=== PATIENT | male | born 1935 | race Caucasian/White ===

== ENCOUNTER → 2022-07-01 10:48 | Outpatient (BNVA) | payer MEDICARE, OTHER, SELFPAY | PROVIDERS: PCP Internal Medicine; Referring Provider Internal Medicine; Visit Provider Internal Medicine Rheumatology | DX: M17.0 Bilateral primary osteoarthritis of knee (principal); M51.36 Other intervertebral disc degeneration, lumbar region; M05.9 Rheumatoid arthritis with rheumatoid factor, unspecified; I50.9 Heart failure, unspecified | CPT/HCPCS: 99202 ==

== ENCOUNTER → 2022-09-09 08:38 | Outpatient (BNVA) | payer MEDICARE, OTHER, SELFPAY | PROVIDERS: PCP Internal Medicine; Visit Provider Internal Medicine Rheumatology | DX: M47.816 Spondylosis without myelopathy or radiculopathy, lumbar region (principal); M05.9 Rheumatoid arthritis with rheumatoid factor, unspecified | CPT/HCPCS: 99212 ==

== ENCOUNTER 2023-04-05 11:16 | Outpatient (AMB) | payer MEDICARE, OTHER, SELFPAY ==
--- NOTE | 2023-04-05 11:45 | A.OFFVIS_ITS ---
Intake Vital Signs 04/05/23 11:46 Height 5 ft 7 in Weight 177 lb 0.499 oz BMI 27.7 BP 140/80 H Blood Pressure Location Lt brachial Position Sitting Pulse 85 Pulse Source Pulse Oximeter Temp 98.1 F Temp Source Skin Pulse Oximetry (%) 96 Oxygen Delivery Method Room Air Intake Visit Reasons: PMR Intake Note: Patient presents today for PMR follow up. Rv Technician Required: No Accompanied by: Daughter Allergies dapagliflozin [From [facility]] Allergy (Unknown, Verified 04/05/23 11:47) Unknown lactose Allergy (Unknown, Uncoded 04/05/23 11:47) Unknown mtx Allergy (Unknown, Uncoded 04/05/23 11:47) Pneumonia HPI HPI Comments History of Present Illness Details The patient returns with his daughter for evaluation of his rheumatoid arthritis. He was having minimal symptoms this spring and we tapered him off the prednisone in September. In December he called us with difficulty getting out of bed. It turns out mostly this was from low back pain. We did treat him with prednisone at 3 mg b.i.d.. That helped somewhat making him a little bit less inflexible in the mornings but he still has back pain. He did get seen at [facility]. They gave him a corticosteroid injection for trochanteric bursitis but he does not think that helped much. He is in physical therapy and that seems to be helping to some degree. He cut the prednisone down to 3 mg in the morning and 2 mg in the afternoon. Again with the reduction he only still gets the lower back pain. This does improve in the morning when he gets up and walks around but by the mid afternoon he is worse again. He does not improve until he goes to bed. The evening prednisone does not seem to help his a fternoons much. He does not have any pain in the shoulders, hands, knees or feet. The family had been concerned that his increased back pain might represent some return of his lymphoma. The daughter says he did undergo a CT scan of the abdomen and no lymphadenopathy or recurrence of lymphoma was noted. [facility] Medical History Aortic aneurysm CHF (congestive heart failure) DDD (degenerative disc disease), lumbar Diabetes Gout Ground glass opacity present on imaging of lung Hx of glaucoma Hyperlipidemia Hypertension Lumbar radiculopathy Lymphoma Mitral valve regurgitation PMR (polymyalgia rheumatica) Surgical History Hx of colonoscopy Hx of arthroscopy of knee History of back surgery Hx of spinal fusion Family History Father Myocardial infarct Mother Seizures Hypertension Social History Household Members: Spouse Alcohol intake: current Alcohol intake frequency: does not drink Patient Tobacco Use Status: Former Tobacco user Current occupational status: retired Review of Systems Const Details: Negative for appetite change, weight change, fever, chills, malaise and fatigue Eyes Details: Negative for vision change, dry eyes,headaches and dizziness ENT Details: Negative for hearing change, tinnitus, oral ulcer, nose bleeds and oral dryness. Card Details: Negative chest pain, edema and syncope Resp Details: Negative for SOB, cough and wheezing GI Details: Negative indigestion/heartburn, nausea, abdominal pain, bowel changes, diarrhea, constipation and bloody stool. Endo Details: Negative for polyuria and polydypsia Hen[place]/Lymph Details: Negative for excessive bruising or bleeding. Physical Exam Vital Signs: Last Vital Signs Temp 98.1 F 04/05/23 11:46 Pulse 85 04/05/23 11:46 BP 140/80 H 04/05/23 11:46 Pulse Ox 96 04/05/23 11:46 Oxygen Delivery Method Room Air 04/05/23 11:46 BMI result Body Mass Index 27.7 APPEARANCE: Patient in no acute distress No temporal artery tenderness, redness or swelling. JOINT EXAM: Cervical Spine:? Mild pain with lateral flexion 10 degrees or rotation at 35 degrees.? Some cervical muscle tenderness. Thoracic Spine:? No scoliosis.? No tenderness on palpation. Lumbar Spine:? Alignment normal.? Full range of motion with mild to moderate pain at 60 degrees flexion. There is some paraspinal muscle tenderness. Chest Wall:? No tenderness, swelling, increased warmth or erythema. Hands:? Right: No swelling or tenderness in the MCP joints.? There is bony enlargement at the PIP joints, thumb IP, and all the DIP joints.? These joints are not tender today.? There is no flexor tendon triggering.? He does have some decreased sensation over the thumb and 2nd finger attributed to a laceration and the proximal thumb region that damage nerves.? Left:? Mild swelling at the 1st MCP without tenderness.? All the PIP's and thumb IP joints have some slight bony enlargement without tenderness.? 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 There is no flexor tendon triggerin or thenar atrophy. Wrists:? Right:? Pain-free flexion extension 80 degrees without tenderness or swelling.? Left: Pain-free flexion or extension at 80 degrees with some slight tenderness but no swelling. Elbows:. Normal pain-free range of motion without tenderness, swelling, increased warmth or erythema. Shoulders:.?? Full range of motion without pain. No tenderness, weakness, swelling, increased warmth or erythema. Hips:.? Full range of motion without pain. Hip bursa:.? No tenderness. Knees:.?? Normal pain-free range of motion with mild patellofemoral crepitus but no effusion, tenderness, swelling, increased warmth or erythema.? Ankles:.? Normal pain-free range of motion without tenderness, swelling, increased warmth or erythema. Feet:? Normal pain-free range of motion with mild 1st MTP bony enlargement but no tenderness in that joint.? Elsewhere there is no tenderness, swelling, increased warmth or erythema.?? Results Reviewed Results Reviewed: Lab work from March 03 at [facility]: ESR 28, CRP 0.82 Assessment & Plan Assessment & Plan (1) Seropositive rheumatoid arthritis: Code(s): M05.9 - Rheumatoid arthritis with rheumatoid factor, unspecified (2) Osteoarthritis of lumbar spine: Code(s): M47.816 - Spondylosis without myelopathy or radiculopathy, lumbar region Plan It looks like there is minimal sign of active synovitis in the small joints from his rheumatoid arthritis on this low dose of prednisone. The biggest problem at this point remains the lower back pain. He is able to get up and around but has pain that develops in the afternoon and makes it difficult for him to stand up and walk. He is requesting a handicap placard and that seems reasonable since he always walks with a cane. I encouraged him to continue with physical therapy. I think for now we will keep him at the same dose of prednisone. When he sees orthopedics he should talked about obtaining a warm and form lumbar corset which might help some with his late in the afternoon back pain with standing. He could also consider return to a pain management service that might inject the back and as a last resort revisit the option of surgery in the future. We will see him back in about 3 months. Coding Level of Care Code Est Pt Level 3 (20098) Diagnoses Seropositive rheumatoid arthritis M05.9 Osteoarthritis of lumbar spine M47.816
[2023-04-05 11:46] VITALS: BP 140/80; PULSE 85; TEMP 36.7; O2SAT 96; BMI 27.7
== END 2023-04-05 12:33 | disposition home or self-care (01) ==
PROVIDERS: PCP Internal Medicine; Visit Provider Internal Medicine Rheumatology
DX: M05.79 Rheumatoid arthritis with rheumatoid factor of multiple sites without organ or systems involvement (principal); M47.816 Spondylosis without myelopathy or radiculopathy, lumbar region
CPT/HCPCS: 99213

== ENCOUNTER → 2023-04-05 11:16 | Outpatient (BNVA) | payer MEDICARE, OTHER, SELFPAY | PROVIDERS: PCP Internal Medicine; Visit Provider Internal Medicine Rheumatology | DX: M05.9 Rheumatoid arthritis with rheumatoid factor, unspecified (principal); M47.816 Spondylosis without myelopathy or radiculopathy, lumbar region | CPT/HCPCS: 99212 ==

== ENCOUNTER 2024-04-17 10:38 | Outpatient (AMB) | payer MEDICARE, OTHER, SELFPAY ==
--- NOTE | 2024-04-17 10:48 | A.OFFVIS_ITS ---
Vital Signs 04/17/24 10:51 Height 5 ft 7 in Weight 175 lb 14.862 oz BMI 27.6 BP 124/72 Blood Pressure Location Lt brachial Position Sitting Pulse 88 Pulse Oximetry (%) 98 Oxygen Delivery Method Room Air Intake Visit Reasons: PMR Intake Note: Patient presents for PMR. Allergies dapagliflozin [From [facility]] Allergy (Unknown, Verified 04/17/24 10:51) Unknown lactose Allergy (Unknown, Uncoded 04/05/23 11:47) Unknown mtx Allergy (Unknown, Uncoded 04/05/23 11:47) Pneumonia Medication List - Last Reconciled 04/17/24 by Elena Andrews MD acetaminophen ER (Tylenol 8 Hour) 650 mg PO Q8H albuterol sulfate 90 mcg/actuation 2 puffs inhalation Q4-6H PRN aspirin (Adult Low Dose Aspirin) 81 mg PO DAILY carvedilol 3.125 mg PO BID fluticasone furoate-vilanterol 100-25 mcg/dose (Breo Ellipta) 1 ea inhalation DAILY furosemide (Lasix) 10 mg PO DAILY insulin aspart U-100 (Novolog FlexPen U-100 Insulin aspart) 0 - 30 units subcut DAILY insulin glargine 10 units subcut QPM multivitamin 1 tab PO DAILY prednisone take 3 tabs by mouth in the morning and 2 tabs at night sacubitril-valsartan 49-51 mg (Entresto) 1 tab PO BID sennosides-docusate sodium 8.6-50 mg (Stimulant Laxative Plus) 1 tab-cap PO BEDTIME HPI Comments Details: This is an 88-year-old male with rheumatoid arthritis who presents for follow- up. Patient was prescribed prednisone 3 mg in the morning and 2 mg at night by Dr. Gaona. He states that he has lowered the dose to 2 mg in the morning and 1 mg at night and he is doing reasonably well. He has morning stiffness of his hands lasting 5-10 minutes. Per his son patient discontinued prednisone sometime in the summer and he was having significant arthritic pains. His main problem is his back pain. He has done physical therapy without improvement. And he will be seeing a methods specialist engineer tomorrow. [facility] Medical History Hx of glaucoma Hyperlipidemia Diabetes Lymphoma Gout Lumbar radiculopathy Mitral valve regurgitation DDD (degenerative disc disease), lumbar Ground glass opacity present on imaging of lung PMR (polymyalgia rheumatica) Hypertension CHF (congestive heart failure) Aortic aneurysm Surgical History Hx of colonoscopy Hx of arthroscopy of knee History of back surgery Hx of spinal fusion Family History Father Myocardial infarct Mother Seizures Hypertension Social History Household Members: Spouse Alcohol intake: current Alcohol intake frequency: does not drink Patient Tobacco Use Status: Former Tobacco user Current occupational status: retired Review of Systems Musc Reports abnormal gait, Reports back pain, Reports arthralgias and Reports stiffness Neuro Reports abnormal gait Physical Exam Vital Signs: Last Vital Signs Pulse 88 04/17/24 10:51 BP 124/72 04/17/24 10:51 Pulse Ox 98 04/17/24 10:51 Oxygen Delivery Method Room Air 04/17/24 10:51 BMI result Body Mass Index 27.6 Const General: cooperative, healthy appearing and comfortable Nutritional Appearance: overweight Orientation/consciousness: patient oriented x3 Limitations: ambulation with cane HEENT Head: Yes normocephalic and Yes atraumatic Mouth: moist mucous membranes Resp Effort & Inspection: normal respiratory effort and able to speak in complete sentences Auscultation: clear to auscultation bilaterally Cardio Rate: regular rate Rhythm: regular rhythm Skin General skin exam: no rashes or lesions noted Neuro General: patient oriented x3 Extrem Other: Mild osteoarthritic changes of both hands There is very subtle synovitis, almost all his fingers are slightly puffy Bilateral wrist pain with full flexion Bilateral elbow pain with full flexion Decent bilateral hand medical affairs leader strength, mildly reduced right hand No knee warmth or swelling bilaterally Bilateral knee crepitus No ankle swelling or tenderness bilaterally Kyphotic, walks with a cane, Assessment & Plan Assessment & Plan (1) Seropositive rheumatoid arthritis: Code(s): M05.9 - Rheumatoid arthritis with rheumatoid factor, unspecified Category: Medical Plan: This is a 88-year-old male who presents for evaluation of rheumatoid arthritis. He is on prednisone 2 mg in the morning and 1 mg at night. On exam he has very subtle synovitis. In the past patient took methotrexate and apparently had side effects at that time, had pneumonitis versus pneumonia. Other DMARDs we discussed such as hydroxychloroquine, TNF inhibitors and leflunomide. Patient had concerns with hydroxychloroquine, worried about CHF. Already has history of CHF. He was also concerned with TNF inhibitors due to his history of lymphoma. Advised patient that we will further taper his prednisone slowly Reduced to 1.5 mg in the morning and 1 mg at night for 1 month then reduce to 1 mg Twice daily Based on his labs and clinical response we will discuss other DMARD options Labs today and before next visit in 3 months (2) Osteoarthritis of lumbar spine: Code(s): M47.816 - Spondylosis without myelopathy or radiculopathy, lumbar region Category: Medical Plan: Has been doing PT this year without improvement. 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 We will try to get patient to the lowest effective dose of prednisone. Advised patient to follow-up regularly with quill skinner Plan I spent 45 minutes reviewing patient's chart, evaluating patient, ordering diagnostic workup, counseling patient and documenting in the chart Orders: Orders Comprehensive Met. Panel Today M05.9 - Rheumatoid arthritis with rheumatoid factor, unspecified C Reactive Protein Today M05.9 - Rheumatoid arthritis with rheumatoid factor, unspecified Complete Blood Count Auto Diff Today M05.9 - Rheumatoid arthritis with rheumatoid factor, unspecified Erythrocyte Sedimentation Rate Today M05.9 - Rheumatoid arthritis with rheumatoid factor, unspecified Uric Acid Today M10.9 - Gout, unspecified Medications: Changed From prednisone take 3 tabs by mouth in the morning and 2 tabs at night 150 tabs 0RF M05.9 - Rheumatoid arthritis with rheumatoid factor, unspecified To prednisone 1 mg PO BID 180 tabs 0RF M05.9 - Rheumatoid arthritis with rheumatoid factor, unspecified Coding Level of Care Code Est Pt Level 5 (95047) Complex EM visit Add On G2211 Diagnoses Seropositive rheumatoid arthritis M05.9 Osteoarthritis of lumbar spine M47.816 Gout 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
[2024-04-17 10:51] VITALS: BP 124/72; PULSE 88; O2SAT 98; BMI 27.6
== END 2024-04-17 11:26 | disposition home or self-care (01) ==
PROVIDERS: PCP Internal Medicine; Visit Provider Student in an Organized Health Care Education/Training Program
DX: M05.79 Rheumatoid arthritis with rheumatoid factor of multiple sites without organ or systems involvement (principal); M47.816 Spondylosis without myelopathy or radiculopathy, lumbar region; M10.9 Gout, unspecified; Z79.52 Long term (current) use of systemic steroids
CPT/HCPCS: 99215; G2211

== ENCOUNTER → 2024-04-17 10:38 | Outpatient (BNVA) | payer MEDICARE, OTHER, SELFPAY | PROVIDERS: PCP Internal Medicine; Visit Provider Student in an Organized Health Care Education/Training Program | DX: M05.9 Rheumatoid arthritis with rheumatoid factor, unspecified (principal); M10.9 Gout, unspecified; M47.816 Spondylosis without myelopathy or radiculopathy, lumbar region; Z79.52 Long term (current) use of systemic steroids | CPT/HCPCS: 99212 ==

== ENCOUNTER 2024-04-17 11:32 | Outpatient (REF) | payer MEDICARE, OTHER, SELFPAY ==
[2024-04-17 13:20] LABS: MANUAL DIFF FLAG NO
[2024-04-17 13:28] LABS: Basophils Absolute Auto 0.1 X10*3/uL (0.0-0.2); Basophils Percent Auto 0.9 % (0-2); Eosinophils Absolute Auto 0.2 X10*3/uL (0.0-0.4); Eosinophils Percent Auto 1.9 % (0-4); Hematocrit 44.5 % (42.0-52.0); Hemoglobin 15.5 g/dl (14.0-18.0); Imm Gran Abs Auto 0.01 X10*3/uL (0.00-0.03); Imm Gran Pct Auto 0.1 % (0.0-0.4); Lymphocytes Absolute Auto 1.5 X10*3/uL (1.2-4.9); Mean Corpuscular HGB Conc 34.8 g/dl (31.0-36.0); Mean Corpuscular Hemoglobin 33.9 pg (27.0-33.0); Mean Corpuscular Volume 97.4 fL (80.0-98.0); Mean Platelet Volume 9.2 fL (9.4-12.4); Monocytes Absolute Auto 1.1 X10*3/uL (0.1-1.2); Neutrophils Absolute Auto 5.9 x10*3/uL (2.0-8.3); Neutrophils Percent Auto 68.1 % (45-73); Platelet Count 193 X10*3/uL (160-400); Red Blood Count 4.57 X10*6/uL (4.60-5.80); Red Cell Distribution Width 13.2 % (11.0-16.0); White Blood Count 8.7 X10*3/uL (4.8-10.8)
[2024-04-17 13:36] LABS: Rheumatoid Factor 34.4 IU/mL (<15.0)
[2024-04-17 14:02] LABS: Alanine Aminotransferase 23 U/L (0-40); Albumin Level 3.9 g/dL (3.5-5.0); Alkaline Phosphatase 53 U/L (39-117); Anion Gap 12 (12-20); Aspartate Amino Transferase 21 U/L (5-37); Bilirubin Total 0.6 mg/dL (0.0-1.0); Blood Urea Nitrogen 23 mg/dL (9-16); Calcium 9.7 mg/dL (8.4-10.2); Carbon Dioxide 25 mmol/L (22-29); Chloride 105 mmol/L (96-108); Estimated Glomerular Filt Rate > 60; Glucose Random 195 mg/dL (60-115); Potassium 4.3 mmol/L (3.3-5.1); Sodium 138 mmol/L (135-145); Total Protein 7.3 g/dL (6.5-8.0); Uric Acid 6.7 mg/dL (3.4-7.0)
[2024-04-17 14:10] LABS: Erythrocyte Sedimentation Rate 14 MM/HR (0-15)
[2024-04-18 06:00] LABS: HBS Num1 0.49 mIU/mL (0-7.99); HBc Num1 0.08 S/CO (0.00-0.79); HBsAGNum1 0.33 S/CO (0.00-0.99); Hepatitis A Antibody IgM 0.22 Index (0-0.79); Hepatitis B Core Antibody Nonreactive (Nonreactive); Hepatitis B Surface Antigen Negative (Negative); ~HepC Num1 0.15 S/CO (0.00-0.79); ~Hepatitis A Antibody IgM Nonreactive (Nonreactive); ~Hepatitis B Surface Antibody NONREACTIVE (Nonreactive); ~Hepatitis C Antibody Nonreactive (Nonreactive)
[2024-04-19 13:43] LABS: Anti Nuclear Antibody Screen NEGATIVE (NEGATIVE)
[2024-04-20 06:28] LABS: Cyclic Citrullinated Peptide <16 UNITS
== END 2024-04-17 11:33 | disposition home or self-care (01) ==
LOC: HO.10HDL 11:32
PROVIDERS: Visit Provider Student in an Organized Health Care Education/Training Program
DX: Z11.59 Encounter for screening for other viral diseases (principal); M10.9 Gout, unspecified; M05.9 Rheumatoid arthritis with rheumatoid factor, unspecified; Z72.89 Other problems related to lifestyle
CPT/HCPCS: 36415; 80053; 84550; 85025; 85652; 86038; 86140; 86200; 86431; 86704; 86706; 86709; 86803; 87340

== ENCOUNTER 2024-07-24 13:26 | Outpatient (AMB) | payer MEDICARE, OTHER, SELFPAY ==
--- NOTE | 2024-07-24 13:34 | A.OFFVIS_ITS ---
Vital Signs 07/24/24 13:44 Height 5 ft 7 in Weight 171 lb 15.369 oz BMI 26.9 BP 115/74 Blood Pressure Location Lt brachial Position Sitting Pulse 76 Pulse Source Pulse Oximeter Pulse Oximetry (%) 99 Oxygen Delivery Method Room Air Intake Visit Reasons: RA Intake Note: Patient presents for RA. Allergies dapagliflozin [From [facility]] Allergy (Unknown, Verified 07/24/24 13:38) Unknown lactose Allergy (Unknown, Uncoded 04/05/23 11:47) Unknown mtx Allergy (Unknown, Uncoded 04/05/23 11:47) Pneumonia Medication List - Last Reconciled 07/24/24 by Elena Andrews MD acetaminophen ER (Tylenol 8 Hour) 650 mg PO Q8H albuterol sulfate 90 mcg/actuation 2 puffs inhalation Q4-6H PRN aspirin (Adult Low Dose Aspirin) 81 mg PO DAILY carvedilol 3.125 mg PO BID fluticasone furoate-vilanterol 100-25 mcg/dose (Breo Ellipta) 1 ea inhalation DAILY furosemide (Lasix) 10 mg PO DAILY insulin aspart U-100 (Novolog FlexPen U-100 Insulin aspart) 0 - 30 units subcut DAILY insulin glargine 10 units subcut QPM multivitamin 1 tab PO DAILY sacubitril-valsartan 49-51 mg (Entresto) 1 tab PO BID topiramate 75 mg PO BEDTIME HPI Comments Details: This is an 89-year-old male with rheumatoid arthritis and significant spinal osteoarthritis who presents for follow-up. Last visit, I had asked patient to slowly taper his prednisone and stay on 2 mg a day, patient apparently tapered it off about a month ago, as soon as he went off his prednisone his back pain became much worse and he could hardly straighten in his back, he was evaluated by a specialist and received an injection in his back yesterday and he feels much better overall, now he is able to straighten his back and walk better, he states however that the pain that radiates down his left lower extremity did not improve much. He has not noticed much change in his hands, wrists, knees or ankles PFSH Medical History Hx of glaucoma Hyperlipidemia Diabetes Lymphoma Gout Lumbar radiculopathy Mitral valve regurgitation DDD (degenerative disc disease), lumbar Ground glass opacity present on imaging of lung PMR (polymyalgia rheumatica) Hypertension CHF (congestive heart failure) Aortic aneurysm Surgical History Hx of colonoscopy Hx of arthroscopy of knee History of back surgery Hx of spinal fusion Family History Father Myocardial infarct Mother Seizures Hypertension Social History Household Members: Spouse Alcohol intake: current Alcohol intake frequency: does not drink Patient Tobacco Use Status: Former Tobacco user Current occupational status: retired Review of Systems Musc Reports abnormal gait, Reports back pain, Reports arthralgias, Denies joint swelling and Reports stiffness Neuro Reports abnormal gait Physical Exam Vital Signs: Last Vital Signs Pulse 76 07/24/24 13:44 BP 115/74 07/24/24 13:44 Pulse Ox 99 07/24/24 13:44 Oxygen Delivery Method Room Air 07/24/24 13:44 BMI result Body Mass Index 26.9 Const General: cooperative, healthy appearing and comfortable Nutritional Appearance: overweight Orientation/consciousness: patient oriented x3 Limitations: ambulation with cane HEENT Head: Yes normocephalic and Yes atraumatic Mouth: moist mucous membranes Resp Effort & Inspection: normal respiratory effort and able to speak in complete sentences Skin General skin exam: no rashes or lesions noted Neuro General: patient oriented x3 Extrem Other: Mild osteoarthritic changes of both hands No swelling of fingers today No wrist pain with full flexion-extension bilaterally No elbow pain with full flexion-extension bilaterally Normal bilateral hand clinical research scientist strength Able to stand up without assistance No knee warmth or swelling bilaterally Bilateral knee crepitus No ankle swelling or tenderness bilaterally Kyphotic, walks with a cane, Assessment & Plan Assessment & Plan (1) Seropositive rheumatoid arthritis: Code(s): M05.9 - Rheumatoid arthritis with rheumatoid factor, unspecified Category: Medical Plan: This is a 89-year-old male who presents for evaluation of rheumatoid arthritis. I had asked patient to slowly taper his prednisone to 1 mg Twice daily but he tapered it off about a month ago. Soon after he started having worsening low back pain and he received a steroid injection in his spine yesterday with significant improvement of his back pain. Understandably on exam today there is no active synovitis due to the recent steroid injection. In the past patient took methotrexate and apparently had side effects at that time, had pneumonitis versus pneumonia. Other DMARDs we discussed such as hydroxychloroquine, TNF inhibitors and leflunomide. Patient had concerns with hydroxychloroquine, worried about CHF. Already has history of CHF. He was also concerned with TNF inhibitors due to his history of lymphoma. Patient is worried about a flare-up of his back pain now that he is off steroids, he has an appointment with sports medicine tomorrow, advised patient to discuss it with them, he may require steroid injections periodically. I think at this time we can monitor patient off DMARDs, discussed with patient that if his hands start to swell up again he can restart prednisone at 2 mg a day. We can discuss other DMARD options if required, we will have to see how his RA responnds to spinal steroid injections Labs before next visit in 3 months (2) Osteoarthritis of lumbar spine: Code(s): M47.816 - Spondylosis without myelopathy or radiculopathy, lumbar region Category: Medical Plan: Follow-up with sports medicine (3) jail systemic steroid user: Code(s): Z79.52 - jail (current) use of systemic steroids Category: Medical Plan: Patient is aware of long-term systemic steroid use side effects such as cataracts, glaucoma, bone fragility, hyper glycemia and others. Advised patient to follow-up regularly with die try out worker stamping Plan I spent 45 minutes reviewing patient's chart, evaluating patient, ordering diagnostic workup, counseling patient and documenting in the chart Coding Level of Care Code Est Pt Level 4 (46975) Diagnoses Seropositive rheumatoid arthritis M05.9 Osteoarthritis of lumbar spine M47.816 jail systemic steroid user Z79.52
[2024-07-24 13:44] VITALS: BP 115/74; PULSE 76; O2SAT 99; BMI 26.9
--- OUTSIDE RECORDS SUMMARY | 2024-07-24 15:41 | XMS_ITS | Clinical Summary ---
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 Active 2021-07 00:00: 00 UNSPECIFIED B-CELL LYMPHOMA, UNSPECIFIED SITE Active 2021-07 00:00: 00 HEART FAILURE, UNSPECIFIED Active 2021-07 00:00: 00 NONRHEUMATIC MITRAL (VALVE) INSUFFICIENC Y Active 2021-07 00:00: 00 FLU DUE TO OTH IDENT INFLUENZA VIRUS W OTH RESP MANIFEST Active 2021-07 00:00: 00 PULMONARY FIBROSIS, UNSPECIFIED Active 2021-07 00:00: 00 ANEMIA, UNSPECIFIED Active 2021-07 00:00: 00 RHEUMATOID ARTHRITIS, UNSPECIFIED Active 2021-07 00:00: 00 UNSPECIFIED OSTEOARTHRIT IS, UNSPECIFIED SITE Active 2021-07 00:00: 00 GOUT, UNSPECIFIED Active 2021-07 00:00: 00 CONSTIPATION , UNSPECIFIED Active 2021-07 00:00: 00 KNIFE GRINDER (CURRENT) USE OF INHALED STEROIDS Active 2021-07 00:00: 00 KNIFE GRINDER (CURRENT) USE OF ASPIRIN Active 2021-07 00:00: 00 PRISON (CURRENT) USE OF SYSTEMIC STEROIDS Active 2021-07 00:00: 00 KNIFE GRINDER (CURRENT) USE OF INSULIN Active 2021-07 00:00: 00 PERSONAL HISTORY OF PNEUMONIA (RECURRENT) Active 2021-07 00:00: 00 PERSONAL HISTORY OF NICOTINE DEPENDENCE Active 2021-07 00:00: 00 Allergies, Adverse Reactions, Alerts Allergy Name Allergy Type Status Severity Reaction(s) Onset Date Inactive Date Treating Clinician Comments NKA Propensity to adverse reactions Active 2022-05 13:00:3 3 Medications Ordered Medication Name Filled Medication Name Start Date Stop Date Current Medication? Ordering Clinician Indication Dosage Frequency Signature (SIG) Comments Components prednisone 20 mg tablet 2021-07 00:00: 00 06-14 23:59 :00 No [id number] Per instruc tions DAILY Per instructio ns DAILY (route: oral) Med Classific ation: Endocrine prednisone 20 mg tablet 2021-07 00:00: 00 06-14 23:59 :00 No [id number] Per instruc tions DAILY Per instructio ns DAILY (route: oral) Med Classific ation: Endocrine Entresto 49 mg-51 mg tablet 2021-07 00:00: 00 Yes [id number] Per instruc tions TWICE DAILY Per instructio ns TWICE DAILY (route: oral) Med Classific ation: Cardiovas cular Therapy Agents prednisone 5 mg tablet 2021-07 00:00: 00 Yes [id number] Per instruc tions DAILY Per instructio ns DAILY (route: oral) Med Classific ation: Endocrine albuterol sulfate HFA 90 mcg/actuati on aerosol inhaler 2021-07 00:00: 00 Yes [id number] Per instruc tions EVERY 4 TO 6 HOURS NEEDED Per instructio ns EVERY 4 TO 6 HOURS NEEDED (route: inhalation ) Med Classific ation: Respirato ry Therapy Agents aspirin 81 mg tablet,sharita yed release 2021-07 00:00: 00 Yes [id number] 1 tablet DAILY 1 tablet DAILY (route: oral) Med Classific ation: Hematolog ical Agents Basaglar KwikPen U-100 Insulin 100 unit/mL (3 mL) subcutaneou s 2021-07 00:00: 00 Yes [id number] 17 unit DAILY 17 unit DAILY (route: subcutaneo us) Med Classific ation: Endocrine Breo Ellipta 200 mcg-25 mcg/dose powder for inhalation 2021-07 00:00: 00 Yes [id number] 1 inhalat ion DAILY 1 inhalation DAILY (route: inhalation ) Med Classific ation: Respirato ry Therapy Agents carvedilol 3.125 mg tablet 2021-07 00:00: 00 Yes [id number] 1 tablet 2 TIMES DAILY 1 tablet 2 TIMES DAILY (route: oral) Med Classific ation: Cardiovas cular Therapy Agents diclofenac 1 % topical gel 2021-07 00:00: 00 Yes [id number] Per instruc tions 4 TIMES DAILY Per instructio ns 4 TIMES DAILY (route: topical) Med Classific ation: Dermatolo gical furosemide 20 mg tablet 2021-07 00:00: 00 Yes [id number] 0.5 tablet DAILY 0.5 tablet DAILY (route: oral) Med Classific ation: Cardiovas cular Therapy Agents Multivitami n 50 Plus tablet 2021-07 00:00: 00 Yes [id number] 1 tablet DAILY 1 tablet DAILY (route: oral) Med Classific ation: Electroly te Balance-N utritiona l Products Novolog Flexpen U-100 Insulin aspart 100 unit/mL (3 mL) subcutane s 2021-07 00:00: 00 Yes [id number] Per instruc tions 3 TIMES DAILY Per instructio ns 3 TIMES DAILY (route: subcutaneo us) Med Classific ation: Endocrine Senna with Docusate Sodium 8.6 mg-50 mg tablet 2021-07 00:00: 00 Yes [id number] 1 tablet BEDTIME 1 tablet BEDTIME (route: oral) Med Classific ation: Gastroint estinal Therapy Agents Vital Signs Vital Name Observation Time Observation Value Commen ts Temperature 2022-08-03 13:44:00.000 97.3 [degF] Temperature 2022-07-25 15:50:00.000 97.4 [degF] Temperature 2022-07-18 09:16:00.000 97.1 [degF] Temperature 2022-07-11 12:07:00.000 97.5 [degF] Temperature 2022-07-08 10:40:00.000 97.9 [degF] Temperature 2022-06-28 14:28:00.000 97 [degF] Temperature 2022-06-28 10:00:00.000 97.8 [degF] Temperature 2022-06-23 11:00:00.000 97 [degF] Temperature 2022-06-23 09:52:00.000 97.4 [degF] Temperature 2022-06-18 09:10:00.000 97.3 [degF] Temperature 2022-06-16 13:45:00.000 97.4 [degF] Temperature 2022-06-13 09:09:00.000 97 [degF] Temperature 2022-06-08 12:57:00.000 96.9 [degF] BMI (%) 2022-06-08 12:36:14.000 26 kg/m2 Height 2022-06-08 12:35:15.000 67 [in_us] Pulse 2022-08-03 13:44:00.000 66 /min Pulse 2022-07-25 15:50:00.000 68 /min Pulse 2022-07-18 09:16:00.000 86 /min Pulse 2022-07-11 12:07:00.000 66 /min Pulse 2022-07-08 10:40:00.000 79 /min Pulse 2022-06-28 14:28:00.000 81 /min Pulse 2022-06-28 10:00:00.000 76 /min Pulse 2022-06-23 11:00:00.000 78 /min Pulse 2022-06-23 09:52:00.000 76 /min Pulse 2022-06-18 09:10:00.000 87 /min Pulse 2022-06-16 13:45:00.000 80 /min Pulse 2022-06-13 09:09:00.000 84 /min Pulse 2022-06-08 12:57:00.000 67 /min O2 Saturation (%) 2022-08-03 13:44:00.000 96 % O2 Saturation (%) 2022-07-25 15:50:00.000 98 % O2 Saturation (%) 2022-07-18 09:16:00.000 96 % O2 Saturation (%) 2022-07-11 12:07:00.000 97 % O2 Saturation (%) 2022-07-08 10:40:00.000 97 % O2 Saturation (%) 2022-06-28 14:28:00.000 96 % O2 Saturation (%) 2022-06-23 09:52:00.000 96 % O2 Saturation (%) 2022-06-18 09:10:00.000 97 % O2 Saturation (%) 2022-06-16 13:45:00.000 95 % O2 Saturation (%) 2022-06-13 09:09:00.000 95 % O2 Saturation (%) 2022-06-08 12:57:00.000 95 % Respirations 2022-08-03 13:44:00.000 18 /min Respirations 2022-07-25 15:50:00.000 18 /min Respirations 2022-07-18 09:16:00.000 18 /min Respirations 2022-07-11 12:07:00.000 18 /min Respirations 2022-07-08 10:40:00.000 17 /min Respirations 2022-06-28 14:28:00.000 18 /min Respirations 2022-06-28 10:00:00.000 19 /min Respirations 2022-06-23 11:00:00.000 19 /min Respirations 2022-06-23 09:52:00.000 18 /min Respirations 2022-06-18 09:10:00.000 18 /min Respirations 2022-06-16 13:45:00.000 20 /min Respirations 2022-06-13 09:09:00.000 18 /min Respirations 2022-06-08 12:57:00.000 20 /min Weight (lbs) 2022-08-03 13:45:00.000 170 [lb_av] Weight (lbs) 2022-07-25 15:50:00.000 170 [lb_av] Weight (lbs) 2022-07-18 09:18:00.000 170 [lb_av] Weight (lbs) 2022-07-11 12:20:00.000 170 [lb_av] Weight (lbs) 2022-07-08 10:40:00.000 170 [lb_av] Weight (lbs) 2022-06-28 14:28:00.000 170 [lb_av] Weight (lbs) 2022-06-28 10:00:00.000 173 [lb_av] Weight (lbs) 2022-06-23 11:00:00.000 171 [lb_av] Weight (lbs) 2022-06-23 09:54:00.000 171 [lb_av] Weight (lbs) 2022-06-18 09:16:00.000 171 [lb_av] Weight (lbs) 2022-06-16 13:45:00.000 172 [lb_av] Weight (lbs) 2022-06-13 09:09:00.000 171 [lb_av] Weight (lbs) 2022-06-08 12:36:14.000 172 [lb_av] Systolic Blood Pressure 2022-08-03 13:44:00.000 102 mm [Hg] Systolic Blood Pressure 2022-07-25 15:50:00.000 148 mm [Hg] Systolic Blood Pressure 2022-07-18 09:16:00.000 119 mm [Hg] Systolic Blood Pressure 2022-07-11 12:07:00.000 132 mm [Hg] Systolic Blood Pressure 2022-07-08 10:40:00.000 112 mm [Hg] Systolic Blood Pressure 2022-06-28 14:28:00.000 101 mm [Hg] Systolic Blood Pressure 2022-06-28 10:00:00.000 124 mm [Hg] Systolic Blood Pressure 2022-06-23 11:00:00.000 124 mm [Hg] Systolic Blood Pressure 2022-06-23 09:52:00.000 113 mm [Hg] Systolic Blood Pressure 2022-06-18 09:10:00.000 129 mm [Hg] Systolic Blood Pressure 2022-06-16 13:45:00.000 126 mm [Hg] Systolic Blood Pressure 2022-06-13 09:09:00.000 125 mm [Hg] Systolic Blood Pressure 2022-06-08 12:57:00.000 143 mm [Hg] Diastolic Blood Pressure 2022-08-03 13:44:00.000 52 mm [Hg] Diastolic Blood Pressure 2022-07-25 15:50:00.000 80 mm [Hg] Diastolic Blood Pressure 2022-07-18 09:16:00.000 78 mm [Hg] Diastolic Blood Pressure 2022-07-11 12:07:00.000 80 mm [Hg] Diastolic Blood Pressure 2022-07-08 10:40:00.000 62 mm [Hg] Diastolic Blood Pressure 2022-06-28 14:28:00.000 64 mm [Hg] Diastolic Blood Pressure 2022-06-28 10:00:00.000 76 mm [Hg] Diastolic Blood Pressure 2022-06-23 11:00:00.000 80 mm [Hg] Diastolic Blood Pressure 2022-06-23 09:52:00.000 80 mm [Hg] Diastolic Blood Pressure 2022-06-18 09:10:00.000 78 mm [Hg] Diastolic Blood Pressure 2022-06-16 13:45:00.000 78 mm [Hg] Diastolic Blood Pressure 2022-06-13 09:09:00.000 76 mm [Hg] Diastolic Blood Pressure 2022-06-08 12:57:00.000 83 mm [Hg] Plan of Treatment Planned Activity Planned Date Details Comments Future Scheduled Test SKILLED NU RSE TO EVALUATE PATIENT, IDENTIFY PRIMARY AND CO-MORBID CONDITIONS CODED PER CODING GUIDELINES, AND DEVELOP PATIENT SPECIFIC PLAN OF CARE THAT INCLUDES PATIENT GOAL FOR HOME HEALTH. CLINICAL SUMMARY SOC THE PATIENT IS RECEIVING HOMECARE DUE TO DIABETES, INFLUENZA A, INTERSTITIAL LUNG DISEASE, CHF, MITRAL VALVE REGURGITATION AND RHEUMATOID ARTHRITIS RECENT HOSPITALIZATION/INPATIENT ADMISSION RELATED TO: PATIENT ADMITTED TO [facility] 06/03/22- 06/06/22 FOR INFLUENZA A INFECTION THAT CAUSE NEAR SYNCOPAL EPISODE. NEW OR CHANGED MEDICATIONS: TAMIFLU PATIENT LIVING SITUATION/CAREGIVER STATUS: PATIENT LIVES IN SINGLE FAMILY HOME WITH HIS . RECENT FALLS: NA SUMMARIZE SKILLED NEED: SKILLED NURSE TO ASSESS AND MANAGE CHRONIC DISEASES, PROVIDE EDUCATION ON MEDICATIONS AND DISEASE PROCESS, ASSESS PAIN AND MAINTAIN SAFETY. ADDITIONAL DISCIPLINES NEEDED OR DECLINED ORDERED SERVICES: PT [code = SKILLED NURSE TO EVALUATE PATIENT, IDENTIFY PRIMARY AND CO-MORBID CONDITIONS CODED PER CODING GUIDELINES, AND DEVELOP PATIENT SPECIFIC PLAN OF CARE THAT INCLUDES PATIENT GOAL FOR HOME HEALTH. CLINICAL SUMMARY SOC THE PATIENT IS RECEIVING HOMECARE DUE TO DIABETES, INFLUENZA A, INTERSTITIAL LUNG DISEASE, CHF, MITRAL VALVE REGURGITATION AND RHEUMATOID ARTHRITIS RECENT HOSPITALIZATION/INPATIENT ADMISSION RELATED TO: PATIENT ADMITTED TO [facility] 06/03/22- 06/06/22 FOR INFLUENZA A INFECTION THAT CAUSE NEAR SYNCOPAL EPISODE. NEW OR CHANGED MEDICATIONS: TAMIFLU PATIENT LIVING SITUATION/CAREGIVER STATUS: PATIENT LIVES IN SINGLE FAMILY HOME WITH HIS . RECENT FALLS: NA SUMMARIZE SKILLED NEED: SKILLED NURSE TO ASSESS AND MANAGE CHRONIC DISEASES, PROVIDE EDUCATION ON MEDICATIONS AND DISEASE PROCESS, ASSESS PAIN AND MAINTAIN SAFETY. ADDITIONAL DISCIPLINES NEEDED OR DECLINED ORDERED SERVICES: PT] Future Scheduled Test SKILLED NU RSE FOR O/A OF LOWER EXTREMITIES TO IDENTIFY CHANGES OR LESIONS ASSOCIATED WITH DIABETES MELLITUS FOR EARLY INTERVENTIONS OF COMPLICATIONS. SKILLED NURSE TO PROVIDE INSTRUCTION ON PROPER DIABETIC SKIN/FOOT CARE. [code = SKILLED NURSE FOR O/A OF LOWER EXTREMITIES TO IDENTIFY CHANGES OR LESIONS ASSOCIATED WITH DIABETES MELLITUS FOR EARLY INTERVENTIONS OF COMPLICATIONS. SKILLED NURSE TO PROVIDE INSTRUCTION ON PROPER DIABETIC SKIN/FOOT CARE.] Future Scheduled Test SKILLED NU RSE TO REVIEW PATIENT MEDICATIONS. INSTRUCT PATIENT/CAREGIVER ON MONITORING OF EFFECTIVENESS, ADVERSE DRUG REACTIONS, SIDE EFFECTS OF ALL MEDICATIONS (PRESCRIPTION/-OTC), AND HOW AND WHEN TO REPORT PROBLEMS. [code = SKILLED NURSE TO REVIEW PATIENT MEDICATIONS. INSTRUCT PATIENT/CAREGIVER ON MONITORING OF EFFECTIVENESS, ADVERSE DRUG REACTIONS, SIDE EFFECTS OF ALL MEDICATIONS (PRESCRIPTION/-OTC), AND HOW AND WHEN TO REPORT PROBLEMS.] Future Scheduled Test SKILLED NU RSE TO PERFORM HOME SAFETY AND FALL ASSESSMENT AND PROVIDE INSTRUCTION TO IMPLEMENT HOME SAFETY AND FALL PREVENTION STRATEGIES. [code = SKILLED NURSE TO PERFORM HOME SAFETY AND FALL ASSESSMENT AND PROVIDE INSTRUCTION TO IMPLEMENT HOME SAFETY AND FALL PREVENTION STRATEGIES.] Future Scheduled Test SKILLED NU RSE FOR O/A AND TEACHING RELATED TO B CELL LYMPHOMA INCLUDING SIGNS AND SYMPTOMS OF DISEASE PROGRESSION, TREATMENT, AND MANAGEMENT OF POTENTIAL SIDE EFFECTS. [code = SKILLED NURSE FOR O/A AND TEACHING RELATED TO B CELL LYMPHOMA INCLUDING SIGNS AND SYMPTOMS OF DISEASE PROGRESSION, TREATMENT, AND MANAGEMENT OF POTENTIAL SIDE EFFECTS.] Future Scheduled Test PATIENT KAUR S A RISK OF REHOSPITALIZATION. SKILLED NURSE TO ESTABLISH SUPPORT MEASURES TO MINIMIZE RISK OF REHOSPITALIZATION, AND INSTRUCT PATIENT/CAREGIVER ON METHODS TO REDUCE AVOIDABLE HOSPITALIZATION. [code = PATIENT HAS A RISK OF REHOSPITALIZATION. SKILLED NURSE TO ESTABLISH SUPPORT MEASURES TO MINIMIZE RISK OF REHOSPITALIZATION, AND INSTRUCT PATIENT/CAREGIVER ON METHODS TO REDUCE AVOIDABLE HOSPITALIZATION.] Future Scheduled Test SKILLED NU RSE TO PROVIDE INSTRUCTION TO PATIENT/CAREGIVER RELATED TO DISCHARGE PLANNING. [code = SKILLED NURSE TO PROVIDE INSTRUCTION TO PATIENT/CAREGIVER RELATED TO DISCHARGE PLANNING.] Future Scheduled Test SKILLED NU RSE FOR O/A, TEACHING, AND MANAGEMENT OF NONRHEUMATIC MITRAL VALVE INSUFFICIENCY [code = SKILLED NURSE FOR O/A, TEACHING, AND MANAGEMENT OF NONRHEUMATIC MITRAL VALVE INSUFFICIENCY] Future Scheduled Test SKILLED NU RSE FOR OBSERVATION AND ASSESSMENT OF PATIENTS PAIN LEVEL AND EFFECTIVENESS OF PAIN MANAGEMENT REGIMEN. SKILLED NURSE TO INSTRUCT PATIENT/CAREGIVER REGARDING PHARMACOLOGIC AND NON-PHARMACOLOGIC PAIN CONTROL MEASURES. SKILLED NURSE TO REPORT TO PHYSICIAN IF PAIN IS UNCONTROLLED WITH CURRENT PAIN MANAGEMENT REGIMEN. [code = SKILLED NURSE FOR OBSERVATION AND ASSESSMENT OF PATIENTS PAIN LEVEL AND EFFECTIVENESS OF PAIN MANAGEMENT REGIMEN. SKILLED NURSE TO INSTRUCT PATIENT/CAREGIVER REGARDING PHARMACOLOGIC AND NON-PHARMACOLOGIC PAIN CONTROL MEASURES. SKILLED NURSE TO REPORT TO PHYSICIAN IF PAIN IS UNCONTROLLED WITH CURRENT PAIN MANAGEMENT REGIMEN.] Future Scheduled Test SKILLED NU RSE FOR O/A OF RESPIRATORY SYSTEM TO IDENTIFY CHANGES ASSOCIATED WITH EXACERBATION AND TO PROVIDE SKILLED TEACHING ON MANAGEMENT OF INTERSTITIAL LUNG DISEASE. [code = SKILLED NURSE FOR O/A OF RESPIRATORY SYSTEM TO IDENTIFY CHANGES ASSOCIATED WITH EXACERBATION AND TO PROVIDE SKILLED TEACHING ON MANAGEMENT OF INTERSTITIAL LUNG DISEASE.] Future Scheduled Test SKILLED NU RSE FOR O/A RELATED TO SIGNS AND SYMPTOMS OF INFECTION AND TO PROVIDE TEACHING REGARDING INFECTION CONTROL MEASURES DUE TO RECENT INFLUENZA DIAGNOSIS. [code = SKILLED NURSE FOR O/A RELATED TO SIGNS AND SYMPTOMS OF INFECTION AND TO PROVIDE TEACHING REGARDING INFECTION CONTROL MEASURES DUE TO RECENT INFLUENZA DIAGNOSIS.] Future Scheduled Test SKILLED NU RSE TO ASSESS PATIENT'S SKIN INTEGRITY AND INSTRUCT PATIENT/CAREGIVER ON MEASURES TO PREVENT PRESSURE ULCERS [code = SKILLED NURSE TO ASSESS PATIENT'S SKIN INTEGRITY AND INSTRUCT PATIENT/CAREGIVER ON MEASURES TO PREVENT PRESSURE ULCERS] Future Scheduled Test PHYSICAL T HERAPIST TO EVALUATE PATIENT FOR INCREASED WEAKNESS AND DECREASED ENDURANCE. [code = PHYSICAL THERAPIST TO EVALUATE PATIENT FOR INCREASED WEAKNESS AND DECREASED ENDURANCE.] Future Scheduled Test SKILLED NU RSE FOR O/A, TEACHING AND SELF-MANAGEMENT RELATED TO HEART FAILURE. INSTRUCT PATIENT/CAREGIVER ON SIGNS AND SYMPTOMS OF EXACERBATION TO REPORT. WEIGHT TO BE OBTAINED DAILY AND WEIGHT GAIN OF 2-3 LBS OVERNIGHT OR 5 LBS IN 1 WEEK TO BE REPORTED TO PHYSICIAN [code = SKILLED NURSE FOR O/A, TEACHING AND SELF-MANAGEMENT RELATED TO HEART FAILURE. INSTRUCT PATIENT/CAREGIVER ON SIGNS AND SYMPTOMS OF EXACERBATION TO REPORT. WEIGHT TO BE OBTAINED DAILY AND WEIGHT GAIN OF 2-3 LBS OVERNIGHT OR 5 LBS IN 1 WEEK TO BE REPORTED TO PHYSICIAN] Future Scheduled Test SKILLED NU RSE FOR O/A AND TEACHING OF DIABETIC MANAGEMENT INCLUDING BLOOD SUGAR MONITORING/USE OF GLUCOMETER, DIABETIC DIET, LOWER EXTREMITY SKIN INSPECTION, PROPER SKIN/FOOT CARE, AND SIGNS AND SYMPTOMS HYPO/HYPERGLYCEMIA TO REPORT AND METHODS TO MANAGE. [code = SKILLED NURSE FOR O/A AND TEACHING OF DIABETIC MANAGEMENT INCLUDING BLOOD SUGAR MONITORING/USE OF GLUCOMETER, DIABETIC DIET, LOWER EXTREMITY SKIN INSPECTION, PROPER SKIN/FOOT CARE, AND SIGNS AND SYMPTOMS HYPO/HYPERGLYCEMIA TO REPORT AND METHODS TO MANAGE.] Future Scheduled Test SKILLED NU RSE FOR O/A AND SKILLED TEACHING RELATED TO SIGNS AND SYMPTOMS AND MANAGEMENT OF RHEUMATOID ARTHRITIS. [code = SKILLED NURSE FOR O/A AND SKILLED TEACHING RELATED TO SIGNS AND SYMPTOMS AND MANAGEMENT OF RHEUMATOID ARTHRITIS. ] Future Scheduled Test VIRTUAL SIT FREQUENCY: 1-5 PER WEEK X 4 WEEKS, AND 5 PRN VIRTUAL VISITS MAY BE PERFORMED UTILIZING TELECOMMUNICATIONS SYSTEM TO OPTIMIZE SKILLED SERVICES FURNISHED ON THE PLAN OF CARE. SKILLED NURSE TO ESTABLISH SUPPORT MEASURES TO MINIMIZE RISK OF REHOSPITALIZATION, AND INSTRUCT PATIENT/CAREGIVER ON METHODS TO REDUCE AVOIDABLE HOSPITALIZATION. [code = VIRTUAL VISIT FREQUENCY: 1-5 PER WEEK X 4 WEEKS, AND 5 PRN VIRTUAL VISITS MAY BE PERFORMED UTILIZING TELECOMMUNICATIONS SYSTEM TO OPTIMIZE SKILLED SERVICES FURNISHED ON THE PLAN OF CARE. SKILLED NURSE TO ESTABLISH SUPPORT MEASURES TO MINIMIZE RISK OF REHOSPITALIZATION, AND INSTRUCT PATIENT/CAREGIVER ON METHODS TO REDUCE AVOIDABLE HOSPITALIZATION.] Future Scheduled Test PHYSICAL T HERAPIST TO EVALUATE PATIENT SECONDARY TO FUNCTIONAL DEFICITS/SAFETY CONCERNS. PHYSICAL THERAPY TO ESTABLISH /UPGRADE/DOWNGRADE THERAPEUTIC EXERCISE PROGRAM AND INSTRUCT PATIENT/CAREGIVER ON EXERCISE PRECAUTIONS WITH WRITTEN HOME PROGRAM. MAY INCLUDE PROM, AAROM, AROM, RROM APPROPRIATE TO IMPROVE FUNCTIONAL STRENGTH AND RANGE OF MOTION. PHYSICAL THERAPY TO INSTRUCT PATIENT/CAREGIVER ON SAFE TRANSFER TECHNIQUES USING PROPER BODY MECHANICS AND EQUIPMENT. PHYSICAL THERAPY TO INSTRUCT PATIENT/CAREGIVER ON GAIT TRAINING TECHNIQUES USING APPROPRIATE ASSISTIVE DEVICE, PROPER BODY MECHANICS TO IMPROVE MOBILITY, AND PREVENT INJURY OF PATIENT AND/OR CAREGIVER. PHYSICAL THERAPY TO ASSESS AND RECOMMEND HOME SAFETY ADAPTATIONS AND EDUCATE PATIENT /CAREGIVER ON FALL PREVENTION STRATEGIES. SUMMARY OF THERAPY EVAL/ASSESSMENT FINDINGS AND REASON(S) SKILLS OF A THERAPIST ARE INDICATED: [id number] PHYSICAL THERAPY EVALUATION COMPLETED. PATIENT IS AN 87-YEAR-OLD MALE STATUS POST HOSPITALIZATION SECONDARY TO SYNCOPE AND COLLAPSE, AND PNEUMONIA. PASS MEDICAL HISTORY INCLUDES DIABETES MELLITUS 2, DEHYDRATION, INTERSTITIAL PULMONARY DISEASE, CONGESTIVE HEART FAILURE, RHEUMATOID ARTHRITIS, FLU WITH PNEUMONIA, MITRAL VALVE REGURG ITATION, SHORTNESS OF BREATH. PATIENT LIVES IN TWO-STORY HOME WITH SPOUSE WITH STAIRS TO ENTER AND EXIT. PATIENT REPORTS NO PAIN. INCREASED SHORTNESS OF BREATH AND PHLEGM PRODUCTION. VITAL SIGNS ARE STABLE. BILATERAL LOWER EXTREMITY STRENGTH IS 4 OUT OF 5 GROSSLY. PATIENT IS INDEPENDENT WITH BED MOBILITY. PATIENT REQUIRES SUPERVISION WAS SET TO STAND TRANSFER AND TENDS TO HOLD BREATH DURING TRANSITION TO STAND. PATIENT AMBULATING WITHOUT DEVICE INDOORS WITH SUPERVISION WITH SHUFFLING GAIT. PATIENT REQUIRES CONTACT GUARD ASSIST UP AND DOWN STAIRS WITH BILATERAL RAILINGS. DYNAMIC STAND BALANCE TUG SCORES 15 SECONDS INDICATING A FALL RISK. PRIOR LEVEL OF FUNCTION PATIENT WAS AMBULATING INDEPENDENTLY WITHOUT DEVICE WAS ABLE TO WORK IN YARD, SPLITTING WOOD RAKING LEAVES ETC. CURRENTLY PATIENT REPORTS FATIGUE AND REQUIRING MULTIPLE REST PERIODS DUE TO SHORTNESS OF BREATH. PATIENT IS AGREEABLE TO PHYSICAL THERAPY ONE WEEK ONE TWO WEEK TWO TO ADDRESS DEFICITS AND INSTRUCT PATIENT AND HOME EXERCISE PROGRAM AND REEDUCATION WITH BREATHING TECHNIQUES PATIENT IS CURRENTLY HOMEBOUND REQUIRES PHYSICAL ASSIST TO SAFELY LEAVE HOME [code = PHYSICAL THERAPIST TO EVALUATE PATIENT SECONDARY TO FUNCTIONAL DEFICITS/SAFETY CONCERNS. PHYSICAL THERAPY TO ESTABLISH /UPGRADE/DOWNGRADE THERAPEUTIC EXERCISE PROGRAM AND INSTRUCT PATIENT/CAREGIVER ON EXERCISE PRECAUTIONS WITH WRITTEN HOME PROGRAM. MAY INCLUDE PROM, AAROM, AROM, RROM APPROPRIATE TO IMPROVE FUNCTIONAL STRENGTH AND RANGE OF MOTION. PHYSICAL THERAPY TO INSTRUCT PATIENT/CAREGIVER ON SAFE TRANSFER TECHNIQUES USING PROPER BODY MECHANICS AND EQUIPMENT. PHYSICAL THERAPY TO INSTRUCT PATIENT/CAREGIVER ON GAIT TRAINING TECHNIQUES USING APPROPRIATE ASSISTIVE DEVICE, PROPER BODY MECHANICS TO IMPROVE MOBILITY, AND PREVENT INJURY OF PATIENT AND/OR CAREGIVER. PHYSICAL THERAPY TO ASSESS AND RECOMMEND HOME SAFETY ADAPTATIONS AND EDUCATE PATIENT /CAREGIVER ON FALL PREVENTION STRATEGIES. SUMMARY OF THERAPY EVAL/ASSESSMENT FINDINGS AND REASON(S) SKILLS OF A THERAPIST ARE INDICATED: [id number] PHYSICAL THERAPY EVALUATION COMPLETED. PATIENT IS AN 87-YEAR-OLD MALE STATUS POST HOSPITALIZATION SECONDARY TO SYNCOPE AND COLLAPSE, AND PNEUMONIA. PASS MEDICAL HISTORY INCLUDES DIABETES MELLITUS 2, DEHYDRATION, INTERSTITIAL PULMONARY DISEASE, CONGESTIVE HEART FAILURE, RHEUMATOID ARTHRITIS, FLU WITH PNEUMONIA, MITRAL VALVE REGURG ITATION, SHORTNESS OF BREATH. PATIENT LIVES IN TWO-STORY HOME WITH SPOUSE WITH STAIRS TO ENTER AND EXIT. PATIENT REPORTS NO PAIN. INCREASED SHORTNESS OF BREATH AND PHLEGM PRODUCTION. VITAL SIGNS ARE STABLE. BILATERAL LOWER EXTREMITY STRENGTH IS 4 OUT OF 5 GROSSLY. PATIENT IS INDEPENDENT WITH BED MOBILITY. PATIENT REQUIRES SUPERVISION WAS SET TO STAND TRANSFER AND TENDS TO HOLD BREATH DURING TRANSITION TO STAND. PATIENT AMBULATING WITHOUT DEVICE INDOORS WITH SUPERVISION WITH SHUFFLING GAIT. PATIENT REQUIRES CONTACT GUARD ASSIST UP AND DOWN STAIRS WITH BILATERAL RAILINGS. DYNAMIC STAND BALANCE TUG SCORES 15 SECONDS INDICATING A FALL RISK. PRIOR LEVEL OF FUNCTION PATIENT WAS AMBULATING INDEPENDENTLY WITHOUT DEVICE WAS ABLE TO WORK IN YARD, SPLITTING WOOD RAKING LEAVES ETC. CURRENTLY PATIENT REPORTS FATIGUE AND REQUIRING MULTIPLE REST PERIODS DUE TO SHORTNESS OF BREATH. PATIENT IS AGREEABLE TO PHYSICAL THERAPY ONE WEEK ONE TWO WEEK TWO TO ADDRESS DEFICITS AND INSTRUCT PATIENT AND HOME EXERCISE PROGRAM AND REEDUCATION WITH BREATHING TECHNIQUES PATIENT IS CURRENTLY HOMEBOUND REQUIRES PHYSICAL ASSIST TO SAFELY LEAVE HOME] Goal 2022-08-03 Patient Goal - F EEL BETTER, WALK BETTER AND BREATH BETTER Goal Provider Goal - A PLAN OF CARE WILL BE ESTABLISHED THAT MEETS PATIENT'S GROUP HOME NEEDS AND INCLUDES PATIENT GOAL FOR HOME HEALTH. Goal Provider Goal - CHANGES IN LOWER EXTREMITIES WILL BE IDENTIFIED AND REPORTED TO MD FOR PROMPT INTERVENTION TO PREVENT ASSOCIATED RISKS THROUGHOUT THE CERTIFICATION PERIOD. PATIENT/CAREGIVER WILL VERBALIZE UNDERSTANDING OF PROPER DIABETIC SKIN/FOOT CARE BY THE END OF THE CERTIFICATION PERIOD. Goal Provider Goal - PATIENT/CAREGIVER WILL VERBALIZE UNDERSTANDING OF EDUCATION PROVIDED ON MEDICATIONS BY THE END OF THE CERTIFICATION PERIOD. Goal Provider Goal - PATIENT/CAREGIVER WILL VERBALIZE/DEMONSTRATE EFFECTIVE HOME SAFETY AND FALL PREVENTION STRATEGIES THROUGHOUT CERTIFICATION PERIOD. Goal Provider Goal - PATIENT / CAREGIVER WILL VERBALIZE/DEMONSTRATE MANAGEMENT OF CANCER/NEOPLASM DISEASE AND THE SIDE EFFECTS OF TREATMENTS DURING THIS EPISODE. Goal Provider Goal - PATIENT WILL HAVE SUPPORT MEASURES ESTABLISHED TO PREVENT REHOSPITALIZATION AND PATIENT/CAREGIVER WILL VERBALIZE/DEMONSTRATE METHODS TO REDUCE AVOIDABLE HOSPITALIZATION BY END OF CERTIFICATION PERIOD. Goal Provider Goal - PATIENT/CAREGIVER WILL VERBALIZE UNDERSTANDING OF DISCHARGE PLANNING INSTRUCTIONS BY DATE OF DISCHARGE. Goal Provider Goal - PATIENT/CAREGIVER WILL VERBALIZE/DEMONSTRATE MANAGEMENT OF CARDIAC DISEASE PROCESS AND EXACERBATIONS WILL BE IDENTIFIED AND PROMPTLY REPORTED THROUGHOUT THE CERTIFICATION PERIOD. Goal Provider Goal - PATIENT/CAREGIVER WILL DEMONSTRATE UNDERSTANDING OF PHARMACOLOGIC AND NONPHARMACOLOGIC PAIN CONTROL MEASURES AND PATIENT WILL HAVE IMPROVEMENT IN PAIN INTERFERING WITH ACTIVITY EVIDENCED BY PAIN CONTROLLED AT LEVEL OF 7 OR LESS BY END OF CERTIFICATION PERIOD. Goal Provider Goal - PATIENT/CAREGIVER WILL VERBALIZE/DEMONSTRATE MANAGEMENT OF RESPIRATORY DISEASE PROCESS. CHANGES IN RESPIRATORY STATUS WILL BE IDENTIFIED AND REPORTED TO PHYSICIAN FOR PROMPT INTERVENTION THROUGHOUT THE CERTIFICATION PERIOD. Goal Provider Goal - PATIENT/CAREGIVER WILL VERBALIZE/DEMONSTRATE INFECTION CONTROL MEASURES AND SIGNS AND SYMPTOMS OF INFECTION WILL BE IDENTIFIED AND PHYSICIAN NOTIFIED FOR PROMPT INTERVENTION THROUGHOUT THE CERTIFICATION PERIOD. Goal Provider Goal - PATIENT/CAREGIVER WILL VERBALIZE UNDERSTANDING OF PRESSURE ULCER PREVENTION BY END OF CERTIFICATION PERIOD Goal Provider Goal - A PHYSICAL THERAPY EVALUATION TO BE COMPLETED WITH RECOMMENDATIONS AND/OR WRITTEN PLAN OF TREATMENT ESTABLISHED FOR PHYSICIANS SIGNATURE. Goal Provider Goal - PATIENT/CAREGIVER WILL VERBALIZE/DEMONSTRATE KNOWLEDGE AND MANAGEMENT OF HEART FAILURE DISEASE PROCESS BY END OF CERTIFICATION PERIOD. Goal Provider Goal - PATIENT/CAREGIVER WILL VERBALIZE/DEMONSTRATE KNOWLEDGE OF DIABETIC MANAGEMENT. CHANGES IN DIABETIC STATUS WILL BE IDENTIFIED AND REPORTED TO PHYSICIAN FOR PROMPT INTERVENTION THROUGHOUT THE CERTIFICATION PERIOD. Goal Provider Goal - PATIENT/CAREGIVER WILL VERBALIZE UNDERSTANDING OF MUSCULOSKELETAL DISEASE INCLUDING SIGNS AND SYMPTOMS, MANAGEMENT, AND PRESCRIBED TREATMENT REGIMEN BY END OF EPISODE. Goal Provider Goal - PATIENT/CAREGIVER WILL UTILIZE VIRTUAL VISITS TO ACHIEVE GOALS OUTLINED ON THE PLAN OF CARE. PATIENT WILL HAVE SUPPORT MEASURES ESTABLISHED TO PREVENT REHOSPITALIZATION AND PATIENT/CAREGIVER WILL VERBALIZE/DEMONSTRATE METHODS TO REDUCE AVOIDABLE HOSPITALIZATION. Goal Provider Goal - PHYSICAL THERAPY EVALUATION TO BE COMPLETED WITH RECOMMENDATIONS AND/OR WRITTEN TREATMENT PLAN OF CARE ESTABLISHED FOR THE PHYSICIANS SIGNATURE PATIENT/CAREGIVER WILL PERFORM THERAPEUTIC EXERCISE/S AND DEMONSTRATE PARTICIPATION IN A HOME PROGRAM TO IMPROVE FUNCTION OF AMBULATION AND TRANSFERS BY [id number] PATIENT/CAREGIVER WILL DEMONSTRATE SAFE TRANSFERS USING APPROPRIATE ASSISTIVE DEVICE BODY MECHANICS AND EQUIPMENT TO IMPROVE FUNCTION OF TRANSFERS BY [id number] PATIENT/CAREGIVER WILL DEMONSTRATE IMPROVED GAIT TECHNIQUES TO MINIMIZE RISK OF INJURY AND INCREASE FUNCTION OF AMBULATION BY [id number] PATIENT/CAREGIVER WILL DEMONSTRATE/VERBALIZE UNDERSTANDING OF RECOMMENDATIONS TO INCREASE SAFETY IN THE HOME AND FALL PREVENTION TO IMPROVE FUNCTION OF AMBULATION AND TRANSFERS BY [id number] Reason for Visit INDEPENDENT IN THE HOME Encounters Start Date/Time End Date/Time Encounter Type Admission Type Attending [facility] Care Department Encounter ID Discharge Date Discharge Status Discharge Condition Discharge Reason Percent Goals Met 2022-06-08 00:00:00 2022-08-03 00:00:00 Outpatient NEW ADMISSION RICARDO ASTORGA [facility] [id number] 00:00:00 DISCHARGE TO HOME OR SELF CARE INDEPENDEN T IN THE HOME GOALS MET ( ONLY) 86.49
== END 2024-07-24 14:20 | disposition home or self-care (01) ==
LOC: HO.RHE 13:26
PROVIDERS: PCP Internal Medicine; Visit Provider Student in an Organized Health Care Education/Training Program
DX: M05.79 Rheumatoid arthritis with rheumatoid factor of multiple sites without organ or systems involvement (principal); M47.816 Spondylosis without myelopathy or radiculopathy, lumbar region; Z79.52 Long term (current) use of systemic steroids
CPT/HCPCS: 99215

== ENCOUNTER → 2024-07-24 13:26 | Outpatient (BNVA) | payer MEDICARE, OTHER, SELFPAY | PROVIDERS: PCP Internal Medicine; Visit Provider Student in an Organized Health Care Education/Training Program | DX: M05.9 Rheumatoid arthritis with rheumatoid factor, unspecified (principal); M47.816 Spondylosis without myelopathy or radiculopathy, lumbar region; Z79.52 Long term (current) use of systemic steroids | CPT/HCPCS: 99212 ==